=== PATIENT | male | born 1955 | race Caucasian/White ===

== ENCOUNTER 2016-07-02 04:32 | Day surgery (SDC) | payer OTHER ==
[2016-06-27 11:53] LABS: HEMATOCRIT 45.8 % (40.0-51.0)
[2016-06-27 12:06] LABS: BUN (BLOOD UREA NITROGEN) 11 MG/DL (6-23); CALCIUM, SERUM 9.5 MG/DL (8.5-10.4); CHLORIDE, SERUM 104 MMOL/L (96-112); CO2 (CARBON DIOXIDE) 31 MMOL/L (24-34); CREATININE 1.26 MG/DL (0.70-1.30); GFR AFRICAN AMERICAN 72 ML/MIN (>=60); GFR NON AFRICAN AMERICAN 62 ML/MIN (>=60); GLUCOSE, SERUM 102 MG/DL (60-99); POTASSIUM, SERUM 3.8 MMOL/L (3.5-5.3); SODIUM, SERUM 144 MMOL/L (135-148)
--- NOTE | ~2016-07-02 | OP ---
Record Of Operation [facility] [address] [place]. 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 POSTOPERATIVE DIAGNOSIS: Failed spinal column stimulator system. PROCEDURE: 1. Removal of thoracic paddle lead via the laminectomy site. 2. Removal of battery generator. SURGEON: Glen Ramirez M.D. FLUIDS: 1500 mL of LR. ESTIMATED BLOOD LOSS: 5 mL. DRAINS: None. COMPLICATIONS: None. ANTIBIOTIC: Preoperatively. DESCRIPTION OF PROCEDURE: The patient was brought to the operating room at his request and general anesthesia achieved. He was placed in the prone position and the back was prepped and draped in a sterile fashion. The laminectomy site in the thoracic region was then exposed through a single incision. The lead was then identified and removed. Next, the battery pocket was then exposed and the battery removed. Both incisions were well irrigated and final irrigation was performed followed by confirmation of hemostasis and standard wound closure and dressing application. The patient was extubated and transferred to PACU in stable condition. DUSTIN/CHRISTINA Glen Ramirez II, M.D. / [id number] CC: Ward Pfeiffer M.D.
[~2016-07-02 04:32] MED LIST: DURA25 TOP; LINZESS 145 M145 MCG PO; LIOR10 PO; NORCO1 TAB PO; Nexium PO; PR25 PO; SINGULAIR1 PO; TOPXL50 PO; VENTOLIN HFA INH
== END 2016-07-02 09:35 | disposition home or self-care (01) ==
LOC: SDC 04:32
PROVIDERS: Orthopaedic Surgery
PROC: 0JPT0MZ Removal of Stimulator Generator from Trunk Subcutaneous Tissue and Fascia, Open Approach (ICD-10-PCS; 2016-07-02)
PROC: 00PU0MZ Removal of Neurostimulator Lead from Spinal Canal, Open Approach (ICD-10-PCS; 2016-07-02)
PROC: 0JPT0MZ Removal of Stimulator Generator from Trunk Subcutaneous Tissue and Fascia, Open Approach (ICD-10-PCS; 2016-07-02)
PROC: 00PU0MZ Removal of Neurostimulator Lead from Spinal Canal, Open Approach (ICD-10-PCS; principal; 2016-07-02 05:45)
DX: Z46.2 Encounter for fitting and adjustment of other devices related to nervous system and special senses (principal); I10 Essential (primary) hypertension; J45.909 Unspecified asthma, uncomplicated; Z98.890 Other specified postprocedural states; K21.9 Gastro-esophageal reflux disease without esophagitis; K58.9 Irritable bowel syndrome, unspecified; G57.92 Unspecified mononeuropathy of left lower limb; H91.92 Unspecified hearing loss, left ear; Z79.899 Other long term (current) drug therapy; Z79.891 Long term (current) use of opiate analgesic
CPT/HCPCS: 80048; 85014; 85018; 88300; 93005; J0330; J0690; J1030; J1885; J2250; J2405; J2710; J3010; J3370